=== PATIENT | female | born 1940 | race Two or more races ===

== ENCOUNTER 2025-01-20 21:10 | Emergency (ER) | payer OTHER ==
[~2025-01-20] VITALS: Ht 162.6 cm; Wt 66.8 kg
--- NOTE | 2025-01-20 21:57 | DVH ---
EXAM: CT HEAD WITHOUT CONTRAST INDICATION: head injury pain TECHNIQUE: CT of the head without intravenous contrast. Radiation Dose Information: CT Dose: CTDI volume is 50.91 mGy. Dose-length product is 1042.97 mGy*cm The dose indicators for CT are the volume Computed Tomography (CT) Dose Index (CTDIvol) and the Dose Length Product (DLP), and are measured in units of mGy and mGy-cm, respectively. These indicators are not patient dose, but values generated from the CT scanner acquisition factors. The report includes radiation exposure data for exposures received during this examination. COMPARISON: None FINDINGS: There is no evidence of acute intracranial hemorrhage, extra-axial collection, mass effect, midline s hift, herniation or hydrocephalus. The ventricles, sulci and cisterns are age appropriate. The drew-white differentiation is intact. Patchy periventricular and subcortical white matter hypoattenuation is nonspecific but may be related to small vessel ischemic disease. The visualized paranasal sinuses and mastoid air cells are clear. Scalp swelling in the posterior right parietal skull. IMPRESSION: 1. No acute intracranial hemorrhage 2. Scalp swelling on the right posteriorly. 3. No intracranial hemorrhage no findings of displaced skull fracture 4. No CT findings of territorial ischemia. HS:Y
--- NOTE | 2025-01-20 22:50 | ED.PDOC ---
History of Present Illness HPI Comments 84 y/o F, with history of hypertension, is [id number] granddaughter for laceration wound to the posterior scalp s/p fall and head injury. Per granddaughter, patient became, suddenly, dizzy and fell backwards and hit her head on the ground, with uncontrolled initial bleeding at around 1830, this evening. EMS was called and patient was brought to [facility]. She then left AMA and was brought to [facility] ED, due to extensive wait times and no labs or imaging studies were performed. Patient is not on blood thinners. She endorses on bleeding, now, being controlled. No further associated symptoms endorsed. 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 all COMPUTER PATTERNMAKER Hx Family History Family History: Unknown Social History Smoker: Non-Smoker Alcohol: Denies ETOH Use Drugs: Denies Drug Use Lives In: Home, Assisted Care All Other Systems: Reviewed and Negative (Comprehensive systems review obtained and negative except for what is stated in the HPI.) Physical Exam General Appearance: No Apparent Distress, Normal HEENT: Normal ENT Inspection, Pharynx Normal, TMs Normal Neck: Full Range of Motion, Non-Tender, Normal, Normal Inspection Respiratory: Chest Non-Tender, Lungs Clear, No Accessory Muscle Use, No Respiratory Distress, Normal Breath Sounds Cardiovascular: No Edema, No JVD, No Murmur, No Gallop, Normal Peripheral Pulses, Regular Rate/Rhythm Breast Exam: Deferred Gastrointestinal: No Organomegaly, Non Tender, No Pulsatile Mass, Normal Bowel Sounds, Soft Genitalia: Deferred Pelvic: Deferred Rectal: Deferred Extremities: No calf tenderness, Normal capillary refill, Normal inspection, Normal range of motion, Non-tender, No pedal edema Musculoskeletal : Apperance: Normal Neurologic: Alert, 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 Was a procedure done?: Yes Sedation Sedation?: No Laceration Repair : Location scalp Length 2 cm Anesthetic: Lidocaine Laceration Repair Prep: Saline, Betadine Laceration Repair Wound Comple: epidermis/dermis repair Laceration Repair: Skin, SQ, [place] (3) Informed consent obtained: Yes Risks, benefits, and alternati: Yes Differential Dx Considerations may include: laceration, fractures, closed head injury, anemia, among others X-Ray, Labs, Meds, VS Vital Signs Date Time Temp Pulse Resp B/P (MAP) Pulse Ox O2 Delivery O2 Flow Rate FiO2 01/21/25 00:41 89 16 96 Room Air 01/21/25 00:06 98.1 89 16 140/77 (98) 96 98.1 01/20/25 22:05 98.7 99 16 147/100 (116) 97 98.7 [place] [id number] Ph: [phone] DIAGNOSTIC IMAGING Diagnostic Imaging Report : [id number] Signed PATIENT: NEO LEES ACCT: [id number] UNIT: [id number] : 1940 LOC: ER ROOM / BED: / AGE / SEX: 84 / F ADM STATUS: REG ER SERVICE 19 ORDERING PHYSICIAN: DOMINIK MCGOWAN MD PROCEDURE(s): HWOCT - HEAD WITHOUT CONTRAST REASON: head injury pain ORDER NUMBER(s): [id number], ACCESSION NUMBER(s): [id number] EXAM: CT HEAD WITHOUT CONTRAST INDICATION: head injury pain TECHNIQUE: CT of the head without intravenous contrast. Radiation Dose Information: CT Dose: CTDI volume is 50.91 mGy. Dose-length product is 1042.97 mGy*cm The dose indicators for CT are the volume Computed Tomography (CT) Dose Index (CTDIvol) and the Dose Length Product (DLP), and are measured in units of mGy an d mGy-cm, respectively. These indicators are not patient dose, but values generated from the CT scanner acquisition factors. The report includes radiation exposure data for exposures received during this examination. COMPARISON: None FINDINGS: There is no evidence of acute intracranial hemorrhage, extra-axial collection, mass effect, midline shift, herniation or hydrocephalus. The ventricles, sulci and cisterns are age appropriate. The drew-white differentiation is intact. Patchy periventricular and subcortical white matter hypoattenuation is nonspecific but may be related to small vessel ischemic disease. The visualized paranasal sinuses and mastoid air cells are clear. Scalp swelling in the posterior right parietal skull. IMPRESSION: 1. No acute intracranial hemorrhage 2. Scalp swelling on the right posteriorly. 3. No intracranial hemorrhage no findings of displaced skull fracture 4. No CT findings of territorial ischemia. HS:Y ATED BY: ASHVIN RIOS Jr., DO DICTATED DATE/TIME: 01/20/252154 SIGNED BY: ASHVIN RIOS Jr., SIGNED DATE/TIME: 01/20/252154 CC: Time of 1ST Reevaluation: 01:10 Reevaluation 1ST: Improved Patient Education/Counseling: Diagnosis, Treatment, Need For Follow Up Family Education/Counseling: Diagnosis, Treatment, Need For Follow Up SEPSIS Sepsis Screen Orders/Vitals/Labs Physician Orders Head Without Contrast (01/20/25 21:20) Staple Gun (01/20/25 ) Laceration Setup (01/20/25 ) Vital Signs Date Time Temp Pulse Resp B/P (MAP) Pulse Ox O2 Delivery O2 Flow Rate FiO2 01/21/25 00:41 89 16 96 Room Air 01/21/25 00:06 98.1 89 16 140/77 (98) 96 98.1 01/20/25 22:05 98.7 99 16 147/100 (116) 97 98.7 Departure 1 Departure Time of Disposition: 01:10 Impression: Primary Impression: Scalp laceration Additional Impression: Head injury, acute Disposition: 01 HOME / SELF CARE / HOMELESS Condition: Stable Additional Instructions: Follow up with your Primary Physician Return to the Emergency Department for any worsening symptoms or concerns Staple removal in 10-12 days Discharged With: Relative (grandchild) Critical Care Note Critical Care Time?: No Stability Stability form required: No Heart Score Heart Score: Heart Score Response (Comments) Value History N/A 0 EKG N/A 0 Age N/A 0 Risk Factors N/A 0 Troponin N/A 0 Total 0 I personally scribed for DOMINIK MCGOWAN MD ([email or web address]) on 01/20/25 at 22:50. Electronically submitted by Aston Macario ([email or web address]). DOMINIK MCGOWAN MD Jan 20, 2025 22:50
[2025-01-20] MEDS: LIDOCAINE 1% HCL (LOCAL ANESTH.) INJ 20ML MDV ID ONE (23:51)
[2025-01-21 00:06] VITALS: BP 140/77; TEMP 98.1
[2025-01-21 00:41] VITALS: PULSE 89; RESP 16; O2SAT 96
== END 2025-01-21 00:28 | disposition home or self-care (01) ==
LOC: EEVIPCON 21:10 → ER 21:10
DX: S01.01XA Laceration without foreign body of scalp, initial encounter (principal); I10 Essential (primary) hypertension; W22.8XXA Striking against or struck by other objects, initial encounter; Y93.89 Activity, other specified; Y92.89 Other specified places as the place of occurrence of the external cause; Y99.8 Other external cause status
CPT/HCPCS: 12001; 70450; 99284; J2003